=== PATIENT | male | born 1960 | race Caucasian/White ===

== ENCOUNTER → 2018-10-17 | Day surgery (SDC) | payer BC ==
[~2018-10-17] MED LIST: Lactated Ringers 1,000 ML IV SCH; Propofol 200 MG/20 ML SDV IV ONE
[2018-10-17 12:23] VITALS: BP 173/91
--- NOTE | 2018-10-17 14:26 | OR ---
DATE OF OPERATION: 10/17/2018 PREOPERATIVE DIAGNOSIS: 1. DIAGNOSTIC COLONOSCOPY. 2. HISTORY OF POLYPS. POSTOPERATIVE DIAGNOSIS: 1. DIAGNOSTIC COLONOSCOPY. 2. HISTORY OF POLYPS. SURGEON: Nahun Serna MD PROCEDURE: FULL-LENGTH COLONOSCOPY WITH POLYPECTOMY X3. ANESTHESIA: MAC via OXYGEN EQUIPMENT PREPARER. COMPLICATIONS: None. SPECIMEN: Tubular adenomas x3. FINDINGS: 1. Full-length colonoscopy. 2. [id number] sigmoid diverticulosis. 3. Tubular adenomas x3. RECOMMENDATIONS: Followup colonoscopy in 5 years. INDICATIONS: The patient has prior history of polyps in the past. I believe 4 years ago, he had a colonoscopy and had a few removed. He is due for a followup. DESCRIPTION OF PROCEDURE: The patient was prepped and draped, placed in the left lateral decubitus position. A lubricated Olympus colonoscope was inserted and safely and easily advanced to the cecum. Direct visualization of the ileocecal valve and appendiceal orifice was accomplished. The bowel prep was adequate. Upon withdrawal of the scope, the cecum and ascending colon were completely benign. In the distal transverse colon, the patient had a small flat sessile polyp removed with a forceps biopsy x2 in its entirety. The 2nd polyp was located at the splenic flexure, a little bit larger, more flat, but appeared to be a classic tubular adenoma removed with a snare and suctioned into polyp trap #1. The rest of the descending colon was unremarkable. In the proximal to mid sigmoid colon, the patient had a 3rd polyp, also removed with a snare and suctioned into polyp trap #3 without difficulty. The patient does have mild-to- moderate diverticulosis in the sigmoid area without any inflammatory change. I found no other polyps, masses, ulcerations, or bleeding sites. The rectal vault was unremarkable. Retroflexion of scope in the rectum showed no perianal lesions. Air was suctioned, scope removed without complication. MJP/MODL /[id number] cc: Rolando Car MD [address] [id number]
== END ==
LOC: CC.SDS 09:57
PROVIDERS: ATTEND Family Medicine
DX: Z12.11 Encounter for screening for malignant neoplasm of colon (principal); D12.3 Benign neoplasm of transverse colon; D12.5 Benign neoplasm of sigmoid colon; K57.30 Diverticulosis of large intestine without perforation or abscess without bleeding; I10 Essential (primary) hypertension; J45.909 Unspecified asthma, uncomplicated; Z86.010 Personal history of colon polyps; Z79.899 Other long term (current) drug therapy
CPT/HCPCS: 45380; 45385; J2704; J7120

== ENCOUNTER → 2020-02-05 | Day surgery (SDC) | payer BC ==
[~2020-02-05] MED LIST changes: +Ketamine 200 MG/20 ML MDV IV ONE; -Lactated Ringers 1,000 ML IV SCH; +fentaNYL 100 MCG/2 ML SDV IV ONE
[2020-02-05] MEDS: Lactated Ringers 1,000 ML IV SCH (10:25)
[2020-02-05 11:26] VITALS: PULSE 63
[2020-02-05 11:51] VITALS: BP 143/81
--- NOTE | 2020-02-05 14:23 | OR ---
DATE OF OPERATION: 02/05/2020 PREOPERATIVE DIAGNOSIS: PERSISTENT NAUSEA. POSTOPERATIVE DIAGNOSIS: PERSISTENT NAUSEA. SURGEON: Nahun Serna MD PROCEDURE: DIAGNOSTIC COLONOSCOPY WITH BIOPSIES X4, EFRAIN. ANESTHESIA: MAC. COMPLICATIONS: None. SPECIMEN: 1. Antral biopsy x2. 2. Fundal biopsy x2. 3. Antral EFRAIN. 4. Adenomatous polyp of fundus. FINDINGS: 1. Full-length EGD. 2. Mild diffuse chronic gastritis without ulceration or erosion. RECOMMENDATIONS: Medical followup with Dr. Car. INDICATIONS: The patient has been having episodic nausea for many months. He is getting a gallbladder evaluation as he has some biliary symptoms. Dr. Car sent him for diagnostic EGD. DESCRIPTION OF PROCEDURE: The patient was prepped and draped, placed in the left lateral decubitus position. A lubricated Olympus gastroscope was inserted over a bit, advanced to cricopharyngeus area, and easily intubated into the esophagus. The esophageal lining was benign in its entire course. The Z-line was crisp and sharp right at 40 cm, may have been some mild spontaneous reflux, but no distal esophagitis, stricturing, ulceration, or Hayes's changes. The scope was advanced into the stomach, through the pylorus, and into the second portion of the duodenum. This and the duodenal bulb appeared benign. The scope was brought back into the stomach and retroflexed. The upper fundus and cardia were grossly unremarkable. The patient does have some very mild chronic- appearing gastritis from the midportion of the fundal body to the pylorus. We did 2 biopsies of the antrum along with a CLOtest. Also did a biopsy of the fundus. He also had a small adenomatous polyp which we removed in the fundus as well. Air was then suctioned. The scope was removed without complication. JONE/LOTTIE /[id number]
== END ==
LOC: CC.SDS 10:08
PROVIDERS: ATTEND Family Medicine
DX: K29.50 Unspecified chronic gastritis without bleeding (principal); K31.89 Other diseases of stomach and duodenum; K31.7 Polyp of stomach and duodenum; E78.5 Hyperlipidemia, unspecified; F41.8 Other specified anxiety disorders; I10 Essential (primary) hypertension; J45.909 Unspecified asthma, uncomplicated; E78.00 Pure hypercholesterolemia, unspecified; Z11.59 Encounter for screening for other viral diseases; Z79.899 Other long term (current) drug therapy; Z98.890 Other specified postprocedural states
CPT/HCPCS: 00731; 87081; J2704; J3010; J7120; U0002

== ENCOUNTER 2021-03-27 22:14 | Emergency (ER) | payer BC ==
[2021-03-27 22:16] VITALS: BP 123/90
[2021-03-27 22:41] VITALS: PULSE 109
[2021-03-27] MEDS: methylPREDNISolone Sodium Succinate 125 MG/2 ML SDV IM STA (22:50)
[2021-03-27] MEDS: Take Home: Codeine/Promethazine 10-6.25 MG/5 ML Syrup 5 ML, 2 Cup Pack PO ONE (22:50)
--- NOTE | 2021-03-27 22:52 | EDM.PDOC ---
ED HPI GENERAL MEDICAL PROBLEM - General Chief Complaint: Respiratory Problem Stated Complaint: "short of breath/allergies" x1 week Time Seen by Provider: 03/27/21 22:35 Source of Information: Reports: Patient History Limitations: Reports: No Limitations - History of Present Illness INITIAL COMMENTS - FREE TEXT/NARRATIVE: Henrique is a 61 year old male who presents to ER with a one week history of cough and chest tightness. States cough has worsened over the last 24 hours. Is feeling more short of breath and wheezing. Has history of asthma and allergies, typically gets Kenalog this time of year. No fevers. Does have sinus congestion and drainage but no facial pain. Drainage has mostly been clear. No ear pain or sore throat. Does have body aches. No nausea/vomiting or abdominal pain. No diarrhea. Has not been taking any OTC meds for this. Onset: Gradual Duration: Day(s):, Getting Worse Location: Reports: Chest Quality: Reports: Ache Severity: Mild Improves with: Reports: None Associated Symptoms: Reports: Cough, Shortness of Breath. Denies: Confusion, Chest Pain, cough w sputum, Diaphoresis, Fever/Chills, Headaches, Loss of Appetite, Malaise, Nausea/Vomiting - Related Data Allergies Allergy/AdvReac Type Severity Reaction Status Date / Time No Known Allergies Allergy Verified 03/27/21 22:27 Home Meds: Home Meds Citalopram Hydrobromide [Celexa] 20 mg PO DAILY 07/28/13 [History] Lisinopril 20 mg PO DAILY 07/28/13 [History] atorvaSTATin [Lipitor] 10 mg PO BEDTIME 07/28/13 [History] Loratadine/Pseudoephedrine [Claritin-D 12 Hour] 1 tab PO DAILY PRN 10/15/18 [History] Albuterol [Ventolin HFA] 2 puff INH Q4H PRN #1 gm 03/27/21 [Rx] predniSONE [Prednisone] 40 mg PO DAILY #4 tablet 03/27/21 [Rx] Past Medical History Cardiovascular History: Reports: High Cholesterol, Hypertension Respiratory History: Reports: Asthma Musculoskeletal History: Reports: Other (See Below) Other Musculoskeletal History: R U/E injury/degloving w/ skin grafting - Past Surgical History Musculoskeletal Surgical History: Reports: Other (See Below) Other Musculoskeletal Surgeries/Procedures:: R arm/hand Social & Family History - Tobacco Use Tobacco Use Status *Q: Never Tobacco User ED ROS GENERAL - Review of Systems Review Of Systems: See Below Constitutional: Reports: Malaise, Fatigue. Denies: Fever, Chills, Weakness, Decreased Appetite HEENT: Reports: Rhinitis. Denies: Ear Pain, Sinus Problem, Throat Pain, Vertigo Respiratory: Reports: Shortness of Breath, Cough. Denies: Sputum Cardiovascular: Denies: Chest Pain, Edema, Lightheadedness Endocrine: Reports: Fatigue GI/Abdominal: Denies: Abdominal Pain, Constipation, Diarrhea, Decreased Appetite , Nausea, Vomiting : Reports: No Symptoms Musculoskeletal: Reports: Muscle Stiffness Skin: Reports: No Symptoms Neurological: Reports: No Symptoms ED EXAM, GENERAL - Physical Exam Exam: See Below Exam Limited By: No Limitations General Appearance: Alert, WD/WN, No Apparent Distress Ears: Normal External Exam, Normal TMs Nose: Normal Inspection, Normal Mucosa, Clear Rhinorrhea Throat/Mouth: Normal Inspection, Normal Oropharynx Head: Normocephalic Neck: Normal Inspection, Supple, Non-Tender Respiratory/Chest: No Respiratory Distress, Lungs Clear, Normal Breath Sounds, Other (tight frequent cough noted) Cardiovascular: Normal Peripheral Pulses, Regular Rate, Rhythm, No Edema GI/Abdominal: Normal Bowel Sounds, Soft, Non-Tender Extremities: Normal Inspection, No Pedal Edema Neurological: Alert, Oriented Skin Exam: Warm, Dry Course - Vital Signs Last Recorded V/S: Last Vital Signs Temp 98.5 F 03/27/21 22:15 Pulse 109 H 03/27/21 22:41 Resp 20 03/27/21 22:15 BP 123/90 03/27/21 22:15 Pulse Ox 97 03/27/21 22:41 - Orders/Labs/Meds Labs: Laboratory Tests 03/27/21 Range/Units 22:15 SARS CoV-2 RNA Rapid CHRIS Negative (NEGATIVE) - Re-Assessments/Exams Free Text/Narrative Re-Assessment/Exam: 03/27/21 22:54 covid negative Departure - Departure Time of Disposition: 22:54 Disposition: Home, Self-Care 01 Condition: Good Clinical Impression: Acute bronchitis - Discharge Information *PRESCRIPTION DRUG MONITORING PROGRAM REVIEWED*: No *COPY OF PRESCRIPTION DRUG MONITORING REPORT IN PATIENT ASHLEY: No Instructions: Acute Bronchitis, Adult Referrals: PCP,None [Primary Care Provider] - Additional Instructions: 1. Push fluids 2. Tylenol or ibuprofen for fever or discomfort 3. Prednisone 40 mg daily for 4 more days 4. Prometh with codeine 1-2 tsp every 6 hours as needed for cough 5. Follow up with Dr. Car for any worsening symptoms or concerns. Sepsis Event Note (ED) - Evaluation Sepsis Screening Result: Possible Sepsis Risk - Focused Exam Vital Signs: Vital Signs Temp Pulse Resp BP Pulse Ox 03/27/21 22:41 109 H 97 03/27/21 22:15 98.5 F 123 H 20 123/90 98
== END 2021-03-27 23:04 | disposition home or self-care (01) ==
LOC: CC.ED 22:14
DX: J20.9 Acute bronchitis, unspecified (principal); E78.00 Pure hypercholesterolemia, unspecified; I10 Essential (primary) hypertension; J45.909 Unspecified asthma, uncomplicated; Z79.899 Other long term (current) drug therapy; Z20.822 Contact with and (suspected) exposure to COVID-19
CPT/HCPCS: 87635; 96372; 99284; A9270; J2930; U0002